=== PATIENT | female | born 1975 | race Caucasian/White ===

== ENCOUNTER 2016-10-18 17:50 | Emergency (ER) | payer BC, OTHER ==
[~2016-10-18] VITALS: Ht 165.1 cm; Wt 79.4 kg
[2016-10-18 18:04] VITALS: TEMP 36.7; Ht 165.1 cm; Wt 79.4 kg
[2016-10-18] MEDS ORDERED: RABIES VACCINE (IMOVAX) HUMAN DIPL CELL 2.5 INTER.UNIT/ML SYR IM. ONE (18:30)
[2016-10-18] MEDS ORDERED: RABIES IMMUNE GLOBULIN (HUMAN) 150 INTER.UNIT/ML 2 ML VIAL IM. ONE (18:30)
--- NOTE | 2016-10-18 18:35 | EMERGENCY ROOM VISIT NOTE ---
History Report prepared by Scribe: Yeni Cobb Under the Supervision of: Dr. Rhona Pedroza M.D. First contact with patient: 18:09 Chief Complaint: RABIES VACCINE Stated Complaint: RABIES History of Present Illness The patient is a 41 year old female who presents to the Emergency Room with complaints of Review of Systems See HPI for pertinent positives & negatives. A total of 10 systems reviewed and were otherwise negative. Social History Smoking Status: Never Smoker Physical Exam Vital Signs Date Time Temp Pulse Resp B/P (MAP) Pulse Ox O2 Delivery O2 Flow Rate FiO2 10/18/16 18:04 36.7 75 16 113/57 96 Room Air Medical Decision & Procedures Medical Decision []: Past medical records reviewed. The patient was evaluated in room D1A. A complete history and physical examination was performed. Medication Reconcilliation Current Medication List: was personally reviewed by me Scribe Attestation The scribe's documentation has been prepared under my direction and personally reviewed by me in its entirety. I confirm that the note above accurately reflects all work, treatment, procedures, and medical decision making performed by me. Departure Information Referrals Emmanuel Mancia M.D.([facility]) (PCP) Patient Instructions My [facility]
--- NOTE | 2016-10-18 18:42 | EMERGENCY ROOM VISIT NOTE ---
ED Visit Note First contact with patient: 18:09 CHIEF COMPLAINT: Need for rabies vaccine HISTORY OF PRESENT ILLNESS: This 41-year-old female patient presents to the emergency department with complaints of noticing a bat in her house 2 days ago. The patient states she was sleeping upstairs with her son, and when coming down approximately 30 minutes later, noticed the bat flying around the entire dancers house. The patient is uncertain how long the bat had been in the house. She states they did call to have it removed the next day, and it was killed and disposed of, and was not saved for testing. The patient is uncertain if there was a bite, but There is concern for rabies exposure. REVIEW OF SYSTEMS: A 6 system review of systems was completed with positives and pertinent negatives listed in the HPI. ALLERGIES: None MEDICATIONS: Cosopt, Xylatan PMH: None. SOCIAL HISTORY: The patient lives locally with family. She denies drug, alcohol , tobacco use. PHYSICAL EXAM: Vital Signs: Reviewed Nurse's notes, vital signs stable. GENERAL : This is a 41-year-old female, in no acute distress, well-developed, well- nourished. HEAD: Atraumatic, without temporal or scalp tenderness. EYES: PERRLA, EOMI, no discharge or injection. SKIN: No rashes, erythema, bruising, or bites noted. Capillary refill less than 2 seconds. NEUROLOGICAL: Alert and oriented to person place and time. Normal sensation to light and sharp touch. MUSCULOSKELETAL: Motor functions grossly intact of the upper and lower extremities. Full range of motion. There is no tenderness on examination. EMERGENCY DEPARTMENT COURSE: I examined the patient. The patient was given RIG 20 Units/kg, 1600 units. The patient was given Imovax 1ml IM. The patient was observed for 20 minutes with no reaction. The patient was discharged home in stable condition. DIFFERENTIAL DIAGNOSIS: Rabies, bite by bat, and others. DIAGNOSIS: Rabies prophylaxis for possible bat bite DISCHARGE INSTRUCTIONS: Today is day 0. Return to the ER on days 3, 7, 14, and 28 for subsequent vaccinations. Return sooner or follow up with your family doctor for signs of infection (increased redness, discharge, fever) or for complications with the vaccine series. Current/Historical Medications Scheduled Dorzolamide Hcl-Timolol Maleat (Cosopt Oph), 1 DROPS OPB BID Latanoprost (Xalatan 0.005% Oph Cha), 1 DROPS OPB HS Allergies Coded Allergies: No Known Allergies (Unverified , 10/18/16) Vital Signs Date Time Temp Pulse Resp B/P (MAP) Pulse Ox O2 Delivery O2 Flow Rate FiO2 10/18/16 19:33 70 17 119/76 97 Room Air 10/18/16 18:04 36.7 75 16 113/57 96 Room Air Medications Administered Medications (Trade) Dose Ordered Sig/Claudia Route Start Time Stop Time Status Last Admin Dose Admin Rabies Vaccine Human Diploid Cell (Imovax Rabies) 2.5 interunit ONCE ONCE IM. 10/18/16 18:30 10/18/16 18:31 DC 10/18/16 19:10 2.5 INTERUNIT Rabies Immune Globulin (Imogam Rabies Inj) 1,600 interunit ONCE ONCE IM. 10/18/16 18:30 10/18/16 18:31 DC 10/18/16 19:11 1,600 INTERUNIT Departure Information Impression Primary Impression: Encounter for prophylactic administration of rabies immune globulin Additional Impression: Need for prophylactic vaccination against rabies Dispostion Home / Self-Care Condition GOOD Referrals Emmanuel Mancia M.D.([facility]) (PCP) Patient Instructions My [facility], Rabies Immune Globulin human RIG solution for injection , Rabies Vaccine suspension for injection Additional Instructions Today is day 0. Return to the ER on days 3 (10/21/16) , 7 (10/25/16), and 14 () for subsequent vaccinations. Return sooner or follow up with your family doctor for signs of infection ( increased redness, discharge, fever) or for complications with the vaccine series. Problem Qualifiers
[2016-10-18 19:33] VITALS: BP 119/76; PULSE 70; O2SAT 97
[2016-11-01] MEDS ORDERED: DORZ1SOL6 OPB (18:26)
[2016-11-01] MEDS ORDERED: LATA0.5S OPB (18:27)
== END 2016-10-18 19:35 | disposition home or self-care (01) ==
LOC: C.EDB 17:50 → C.EDD 19:35
DX: Z20.3 Contact with and (suspected) exposure to rabies (principal); Z23 Encounter for immunization; Z79.899 Other long term (current) drug therapy

== ENCOUNTER 2016-10-21 21:58 | Emergency (ER) | payer BC ==
[~2016-10-21] VITALS: Ht 165.1 cm; Wt 81.4 kg
[2016-10-21 22:03] VITALS: BP 110/69; PULSE 83; TEMP 36.5; O2SAT 96; Ht 165.1 cm; Wt 81.4 kg
[2016-10-21] MEDS ORDERED: RABIES VACCINE (IMOVAX) HUMAN DIPL CELL 2.5 INTER.UNIT/ML SYR IM. ONE (22:15)
--- NOTE | 2016-10-21 22:18 | EMERGENCY ROOM VISIT NOTE ---
ED Visit Note First contact with patient: 22:04 CHIEF COMPLAINT: Rabies prophylaxis HISTORY OF PRESENT ILLNESS: This 41-year-old female patient presents to the emergency department ambulatory for their secondary rabies shot. The patient has not had any complications from the previous injections. They deny any other complaints. REVIEW OF SYSTEMS: A 6 system review of systems was completed with positives and pertinent negatives listed in the HPI. ALLERGIES: No known drug allergies MEDICATIONS: See med list PMH: Unchanged from previous visit. PHYSICAL EXAM: Vital Signs: Reviewed Nurse's notes, vital signs stable. GENERAL : This is a 41-year-old female, in no acute distress, well-developed, well- nourished. HEAD: Atraumatic, without temporal or scalp tenderness. EYES: PERRLA, EOMI, no discharge or injection. SKIN: Normal. NEUROLOGICAL: Alert and cooperative. Sensory and motor functions grossly intact. EMERGENCY DEPARTMENT COURSE: I examined the patient. The patient was given Imovax 2.5 units IM. The patient was observed for 20 minutes with no reaction. The patient was discharged home in stable condition. DIAGNOSIS: Rabies prophylaxis Current/Historical Medications Scheduled Dorzolamide Hcl-Timolol Maleat (Cosopt Oph), 1 DROPS OPB BID Latanoprost (Xalatan 0.005% Oph Cha), 1 DROPS OPB HS Allergies Coded Allergies: No Known Allergies (Unverified , 10/18/16) Vital Signs Date Time Temp Pulse Resp B/P (MAP) Pulse Ox O2 Delivery O2 Flow Rate FiO2 10/21/16 22:03 36.5 83 16 110/69 96 Room Air Departure Information Impression Primary Impression: Need for post exposure prophylaxis for rabies Dispostion Home / Self-Care Condition GOOD Referrals Emmanuel Mancia M.D.([facility]) (PCP) Patient Instructions My [facility] Additional Instructions Continue to follow the vaccination schedule given to you on your previous visit. Return here for any new/concerning symptoms.
[2016-11-01] MEDS ORDERED: DORZ1SOL6 OPB (18:26)
[2016-11-01] MEDS ORDERED: LATA0.5S OPB (18:27)
== END 2016-10-21 22:22 | disposition home or self-care (01) ==
LOC: C.EDB 21:59 → C.EDA 22:22
DX: Z20.3 Contact with and (suspected) exposure to rabies (principal); Z23 Encounter for immunization

== ENCOUNTER 2016-10-25 19:51 | Emergency (ER) | payer BC ==
[~2016-10-25] VITALS: Ht 165.1 cm; Wt 82.3 kg
[2016-10-25 20:02] VITALS: TEMP 36.7; Ht 165.1 cm; Wt 82.3 kg
[2016-10-25] MEDS ORDERED: RABIES VACCINE (IMOVAX) HUMAN DIPL CELL 2.5 INTER.UNIT/ML SYR IM. ONE (20:30)
--- NOTE | 2016-10-25 20:47 | EMERGENCY ROOM VISIT NOTE ---
ED Visit Note First contact with patient: 20:20 CHIEF COMPLAINT: Rabies prophylaxis HISTORY OF PRESENT ILLNESS: This 41-year-old female patient presents to the emergency department ambulatory for their 3rd rabies shot. The patient has not had any complications from the previous injections. They deny any other complaints. REVIEW OF SYSTEMS: A 6 system review of systems was completed with positives and pertinent negatives listed in the HPI. ALLERGIES: NKDA MEDICATIONS: See EMR PMH: Unchanged from previous visit. PHYSICAL EXAM: Vital Signs: Reviewed Nurse's notes, vital signs stable. GENERAL : This is a 41-year-old female, in no acute distress, well-developed, well- nourished. HEAD: Atraumatic, without temporal or scalp tenderness. EYES: PERRLA, EOMI, no discharge or injection. SKIN: Normal. NEUROLOGICAL: Alert and cooperative. Sensory and motor functions grossly intact. EMERGENCY DEPARTMENT COURSE: I examined the patient. The patient was given Imovax 2.5 units IM. The patient was observed for 20 minutes with no reaction. The patient was discharged home in stable condition. DIAGNOSIS: Rabies prophylaxis Current/Historical Medications Scheduled Dorzolamide Hcl-Timolol Maleat (Cosopt Oph), 1 DROP OPB BID Latanoprost (Xalatan 0.005% Oph Cha), 1 DROP OPB HS Allergies Coded Allergies: No Known Allergies (Unverified , 10/25/16) Vital Signs Date Time Temp Pulse Resp B/P (MAP) Pulse Ox O2 Delivery O2 Flow Rate FiO2 10/25/16 21:46 76 18 122/76 97 10/25/16 20:02 36.7 89 18 111/73 95 Room Air Medications Administered Medications (Trade) Dose Ordered Sig/Claudia Route Start Time Stop Time Status Last Admin Dose Admin Rabies Vaccine Human Diploid Cell (Imovax Rabies) 2.5 interunit ONCE ONCE IM. 10/25/16 20:30 10/25/16 20:31 DC 10/25/16 21:38 2.5 INTERUNIT Departure Information Impression Primary Impression: Rabies, need for prophylactic vaccination against Dispostion Home / Self-Care Condition GOOD Referrals Emmanuel Mancia M.D.([facility]) (PCP) Patient Instructions My [facility] Additional Instructions Continue to follow the previous discharge instructions.
[2016-10-25 21:46] VITALS: BP 122/76; PULSE 76; O2SAT 97
[2016-11-01] MEDS ORDERED: DORZ1SOL6 OPB (18:26)
[2016-11-01] MEDS ORDERED: LATA0.5S OPB (18:27)
== END 2016-10-25 21:47 | disposition home or self-care (01) ==
LOC: C.EDB 19:53 → C.EDD 21:47
DX: Z23 Encounter for immunization (principal); Z20.3 Contact with and (suspected) exposure to rabies

== ENCOUNTER 2016-11-01 20:15 | Emergency (ER) | payer BC ==
[~2016-11-01] VITALS: Ht 165.1 cm; Wt 82.9 kg
[2016-11-01 20:18] VITALS: Ht 165.1 cm; Wt 82.9 kg
[2016-11-01] MEDS ORDERED: RABIES VACCINE (IMOVAX) HUMAN DIPL CELL 2.5 INTER.UNIT/ML SYR IM. ONE (20:30)
--- NOTE | 2016-11-01 20:37 | EMERGENCY ROOM VISIT NOTE ---
ED Visit Note First contact with patient: 20:30 Chief Complaint: Rabies Return Visit History of Present Illness: This patient is a 41-year-old female who presents to the Emergency Department via private vehicle for their final Rabies Vaccination Injections. The patient reports that they had no reaction to previous injection. Patient denies the development of any fevers, chills, sweats, or URI symptoms. Medications: Unchanged from previous visit. Allergies: None PMH: Unchanged from previous visit. SHx: Patient was locally with family. ROS: All pertinent positive and negative review of systems are appropriately documented in the History of Present Illness. Physical Exam: VITAL SIGNS - Vital signs and Nursing Notes were reviewed. GENERAL -41, well-developed, well-nourished, and in no acute distress. SKIN - Without rashes or lesions. NEURO - Patient is A&O and communicates appropriately with the provider. ED Course: Previous ED visit note was reviewed by myself prior to patient evaluation. Patient reports no reaction to the previous injection(s). Patient received 2.5 IU of Imovax intramuscularly. Patient was observed in the Emergency Department for greater than 20 minutes prior to discharge without signs of reaction. Patient was educated on worrisome symptoms for return visit to the Emergency Department. Patient discharged to home with the intent for follow-up in the Emergency Department as scheduled for the remainder of their injections. She denies any immunocompromising condition. Impression: Rabies Prophylaxis Current/Historical Medications Scheduled Dorzolamide Hcl-Timolol Maleat (Cosopt Oph), 1 DROP OPB BID Latanoprost (Xalatan 0.005% Oph Cha), 1 DROP OPB HS Allergies Coded Allergies: No Known Allergies (Unverified , 10/25/16) Vital Signs Date Time Temp Pulse Resp B/P (MAP) Pulse Ox O2 Delivery O2 Flow Rate FiO2 11/01/16 20:54 36.8 86 16 118/73 97 11/01/16 20:18 36.8 86 16 118/73 97 Room Air Medications Administered Medications (Trade) Dose Ordered Sig/Claudia Route Start Time Stop Time Status Last Admin Dose Admin Rabies Vaccine Human Diploid Cell (Imovax Rabies) 2.5 interunit ONCE ONCE IM. 11/01/16 20:30 11/01/16 20:31 DC 11/01/16 20:45 2.5 INTERUNIT Departure Information Impression Primary Impression: Rabies, need for prophylactic vaccination against Dispostion Home / Self-Care Condition GOOD Referrals Emmanuel Mancia M.D. ([facility]) (PCP) Patient Instructions My [facility] Additional Instructions Discharge Instructions: You were seen in the Emergency Department today for your Rabies Prophylaxis Injection. Congratulations on finishing the series. For pain or fever control, you can use the following [id number] medicines (if >12 yo): - Regular strength (325mg/tab) Tylenol (acetaminophen) 2 tabs every 4-6 hours as needed. Do not exceed 12 tablets in a 24 hour period. Avoid taking more than 3 grams (3000 mg) of Tylenol per day. This includes any other sources of acetaminophen you may take on a regular basis. - Regular strength (200 mg/tab) Advil (ibuprofen) 1-2 tabs every 4-6 hours as needed. Do not exceed a dose of 3200 mg per day. Return to the emergency department if your symptoms worsen despite treatment course outlined above. Please return to emergency department with any new/concerning symptoms.
[2016-11-01 20:54] VITALS: BP 118/73; PULSE 86; TEMP 36.8; O2SAT 97
== END 2016-11-01 20:55 | disposition home or self-care (01) ==
LOC: C.EDB 20:16 → C.EDD 20:55
DX: Z20.3 Contact with and (suspected) exposure to rabies (principal); Z23 Encounter for immunization

== ENCOUNTER → 2016-11-01 | Outpatient (CLI) | payer BC ==
[~2016-11-01] MED LIST: DORZ1SOL6 OPB; LATA0.5S OPB
== END | disposition home or self-care (01) ==
LOC: C.PAPS 11:27
PROVIDERS: ATTEND Obstetrics & Gynecology
DX: Z01.419 Encounter for gynecological examination (general) (routine) without abnormal findings (principal); R87.612 Low grade squamous intraepithelial lesion on cytologic smear of cervix (LGSIL)

== ENCOUNTER → 2017-01-17 | Outpatient (CLI) | payer BC ==
--- NOTE | 2017-01-18 07:43 | MAMMOGRAPHY REPORT ---
BILATERAL FIRST EVER DIGITAL SCREENING MAMMOGRAM TOMOSYNTHESIS WITH CAD: 01/17/2017 CLINICAL HISTORY: Routine screening. Baseline exam. TECHNIQUE: Breast tomosynthesis in addition to standard 2D mammography was performed. Current study was also evaluated with a Computer Aided Detection (CAD) system. COMPARISON: No prior exams were available for comparison. BREAST COMPOSITION: There are scattered areas of fibroglandular density in both breasts. FINDINGS: No suspicious mass, architectural distortion or cluster of microcalcifications is seen. IMPRESSION: ACR BI-RADS CATEGORY 1: NEGATIVE There is no mammographic evidence of malignancy. A 1 year screening mammogram is recommended. The pa tient will receive written notification of the results. Approximately 10% of breast cancers are not detected with mammography. A negative mammographic report should not delay biopsy if a clinically suggestive mass is present. Jenny ramírez/penny:01/17/2017 16:37:38 Reception Interviewer: Wendy VALLADARES(Donna)(Farida)(BD), [facility] letter sent: Normal 1/2 BI-RADS Code: ACR BI-RADS Category 1: Negative
== END | disposition home or self-care (01) ==
LOC: C.MAMM 15:56
PROVIDERS: ATTEND Obstetrics & Gynecology
DX: Z12.31 Encounter for screening mammogram for malignant neoplasm of breast (principal)

== ENCOUNTER 2017-04-02 18:21 | Emergency (ER) | payer BC ==
[~2017-04-02] VITALS: Ht 165.1 cm; Wt 85.0 kg
[2017-04-02 18:40] VITALS: TEMP 37
[2017-04-02 19:46] VITALS: Ht 165.1 cm; Wt 85.0 kg
[2017-04-02 19:48] VITALS: O2SAT 96
[2017-04-02] MEDS ORDERED: PROG1CAP2 PO (20:04)
[2017-04-02] MEDS ORDERED: PROG1CAP2 PV (20:04)
[2017-04-02 20:12] LABS: BASO % 0.3 %; BASO ABS # 0.02 K/uL (0-0.2); EOS % 1.9 %; EOS ABS # 0.13 K/uL (0-0.5); HEMATOCRIT 35.9 % (37-47); HEMOGLOBIN 12.1 g/dL (12.0-16.0); IG# 0.03 K/uL (0.00-0.02); LYMPH % 22.2 %; LYMPH ABS # 1.48 K/uL (1.2-3.4); MEAN CORPUSCULAR HEMOGLOBIN 30.3 pg (25-34); MEAN CORPUSCULAR HGB CONC 33.7 g/dl (32-36); MEAN PLATELET VOLUME 10.9 fL (7.4-10.4); MONO % 10.8 %; MONO ABS # 0.72 K/uL (0.11-0.59); NEUT % 64.4 %; NEUT ABS # 4.29 K/uL (1.4-6.5); PLATELET COUNT 216 K/uL (130-400); RED CELL DISTRIBUTION WIDTH CV 14.4 % (11.5-14.5); RED CELL DISTRIBUTION WIDTH SD 47.5 fL (36.4-46.3); WHITE BLOOD COUNT 6.67 K/uL (4.8-10.8)
[2017-04-02 20:22] LABS: PTT PATIENT 27.7 SECONDS (21.0-31.0)
[2017-04-02 20:25] LABS: ALBUMIN 3.5 gm/dl (3.4-5.0); CALCIUM 9.2 mg/dl (8.5-10.1); CREATININE 0.7 mg/dl (0.60-1.20); POTASSIUM 3.3 mmol/L (3.5-5.1)
[2017-04-02 20:28] LABS: TOTAL PROTEIN 7.1 gm/dl (6.4-8.2)
--- NOTE | 2017-04-02 20:56 | DIAGNOSTIC IMAGING REPORT ---
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 FINDINGS: The uterus measures 7.9 x 5.5 x 6.0 cm. The uterus is retroflexed. There is a 2.9 cm thick-walled cyst within the left ovary. This favors a corpus luteum. Normal color flow within the bilateral ovaries. Trace pelvic free fluid. There is a single intrauterine gestational sac, yolk sac, and pole. The crown-rump length is 1.85 cm consistent with an 8 week and 2 day fetus. However, no heart motion was identified. Therefore, this is consistent with a failed . IMPRESSION: Above findings consistent with a failed intrauterine . No heart rate identified. Electronically signed by: Doc Posey M.D. 04/02/2017 8:55 PM Dictated Date/Time: 04/02/2017 8:50 PM
[2017-04-02 23:04] VITALS: BP 118/65; PULSE 107; O2SAT 98
--- NOTE | 2017-04-03 02:22 | EMERGENCY ROOM VISIT NOTE ---
History Report prepared by Abraham: Naty Woodson Under the Supervision of: Dr. Moo King M.D. First contact with patient: 19:22 Chief Complaint: ED VAG BLEEDING Stated Complaint: SPOTTING W/ History of Present Illness The patient is a 42 year old female who presents to the Emergency Room with complaints of constant vaginal bleeding beginning this morning. The patient states that she is 8 weeks and 5 days and she woke up this morning with spotting. She reports that this is her third and she has a history of two miscarriages at 5 weeks and 6 weeks of . She notes that she has had 2 ultrasounds with this that were normal. The patient states that she is taking vitamins and progesterone. Pt denies cramping , trauma, LOC, headache, fevers, chills, diaphoresis, visual changes, neck pain , chest pain, breathing difficulties, nausea, vomiting, abdominal pain, back pain, melena, hematochezia, urinary symptoms, numbness, weakness, lymphadenopathy, rash, or other complaints. Source of History: patient Onset: this morning Position: other (vaginal) Quality: other (bleeding/spotting) Timing: constant Review of Systems See HPI for pertinent positives and negatives. A total of ten systems were reviewed and were otherwise negative. Past Medical & Surgical Medical Problems: (1) Glaucoma (2) Miscarriage Family History No pertinent family history stated. Social History Smoking Status: Never Smoker Marital Status: Housing Status: lives with family Occupation Status: employed Current/Historical Medications Scheduled Dorzolamide Hcl-Timolol Maleat (Cosopt Oph), 1 DROP OPB BID Latanoprost (Xalatan 0.005% Oph Cha), 1 DROP OPB HS Progesterone Micronized (Progesterone), 200 MG PV HS Progesterone Micronized (Progesterone), 200 MG PO HS Allergies Coded Allergies: No Known Allergies (Unverified , 04/02/17) Physical Exam Vital Signs Date Time Temp Pulse Resp B/P (MAP) Pulse Ox O2 Delivery O2 Flow Rate FiO2 04/02/17 23:04 107 21 118/65 98 04/02/17 21:30 91 04/02/17 21:22 92 20 117/64 97 Room Air 04/02/17 19:48 96 Room Air 04/02/17 18:40 37.0 121 18 135/70 98 Room Air Physical Exam GENERAL: Awake, alert, well-appearing, in no distress HENT: Normocephalic, atraumatic. Oropharynx unremarkable. EYES: Normal conjunctiva. Sclera non-icteric. NECK: Supple. No nuchal rigidity. FROM. No JVD. RESPIRATORY: Clear to auscultation. CARDIAC: Regular rate, normal rhythm. Extremities warm and well perfused. Pulses equal. ABDOMEN: Soft, non-distended. No tenderness to palpation. No rebound or guarding. No masses. RECTAL: Deferred. MUSCULOSKELETAL: Chest examination reveals no tenderness. The back is symmetrical on inspection without obvious abnormality. There is no CVA tenderness to palpation. No joint edema. LOWER EXTREMITIES: Calves are equal size bilaterally and non-tender. No edema. No discoloration. NEURO: Normal sensorium. No sensory or motor deficits noted. SKIN: No rash or jaundice noted. Medical Decision & Procedures ER Provider Diagnostic Interpretation: Radiology results as stated below per my review and radiologist interpretation: LIMITED (US) FINDINGS: The uterus measures 7.9 x 5.5 x 6.0 cm. The uterus is retroflexed. There is a 2.9 cm thick-walled cyst within the left ovary. This favors a corpus luteum. Normal color flow within the bilateral ovaries. Trace pelvic free fluid. There is a single intrauterine gestational sac, yolk sac, and pole. The crown-rump length is 1.85 cm consistent with an 8 week and 2 day fetus. However, no heart motion was identified. Therefore, this is consistent with a failed . IMPRESSION: Above findings consistent with a failed intrauterine . No heart rate identified. Electronically signed by: Doc Posey M.D. 04/02/2017 8:55 PM Dictated Date/Time: 04/02/2017 8:50 PM Laboratory Results 04/02/17 19:55 Red Blood Count 3.99, Mean Corpuscular Volume 90.0, Mean Corpuscular Hemoglobin 30.3, Mean Corpuscular Hemoglobin Concent 33.7, Mean Platelet Volume 10.9, Neutrophils (%) (Auto) 64.4, Lymphocytes (%) (Auto) 22.2, Monocytes (%) (Auto) 10.8, Eosinophils (%) (Auto) 1.9, Basophils (%) (Auto) 0.3, Neutrophils # (Auto ) 4.29, Lymphocytes # (Auto) 1.48, Monocytes # (Auto) 0.72, Eosinophils # (Auto ) 0.13, Basophils # (Auto) 0.02 04/02/17 19:55 Test 04/02/17 19:55 White Blood Count 6.67 K/uL (4.8-10.8) Red Blood Count 3.99 M/uL (4.2-5.4) Hemoglobin 12.1 g/dL (12.0-16.0) Hematocrit 35.9 % (37-47) Mean Corpuscular Volume 90.0 fL (80-100) Mean Corpuscular Hemoglobin 30.3 pg (25-34) Mean Corpuscular Hemoglobin Concent 33.7 g/dl (32-36) Platelet Count 216 K/uL (130-400) Mean Platelet Volume 10.9 fL (7.4-10.4) Neutrophils (%) (Auto) 64.4 % Lymphocytes (%) (Auto) 22.2 % Monocytes (%) (Auto) 10.8 % Eosinophils (%) (Auto) 1.9 % Basophils (%) (Auto) 0.3 % Neutrophils # (Auto) 4.29 K/uL (1.4-6.5) Lymphocytes # (Auto) 1.48 K/uL (1.2-3.4) Monocytes # (Auto) 0.72 K/uL (0.11-0.59) Eosinophils # (Auto) 0.13 K/uL (0-0.5) Basophils # (Auto) 0.02 K/uL (0-0.2) RDW Standard Deviation 47.5 fL (36.4-46.3) RDW Coefficient of Variation 14.4 % (11.5-14.5) Immature Granulocyte % (Auto) 0.4 % Immature Granulocyte # (Auto) 0.03 K/uL (0.00-0.02) Prothrombin Time 10.5 SECONDS (9.0-12.0) Prothromb Time International Ratio 1.0 (0.9-1.1) Activated Partial Thromboplast Time 27.7 SECONDS (21.0-31.0) Partial Thromboplastin Ratio 1.1 Urine Color YELLOW Urine Appearance CLOUDY (CLEAR) Urine pH 6.0 (4.5-7.5) Urine Specific [place] 1.018 (1.000-1.030) Urine Protein NEG (NEG) Urine Glucose (UA) NEG (NEG) Urine Ketones NEG (NEG) Urine Occult Blood 2+ (NEG) Urine Nitrite NEG (NEG) Urine Bilirubin NEG (NEG) Urine Urobilinogen NEG (NEG) Urine Leukocyte Esterase NEG (NEG) Urine WBC (Auto) 5-10 /hpf (0-5) Urine RBC (Auto) 5-10 /hpf (0-4) Urine Hyaline Casts (Auto) 1-5 /lpf (0-5) Urine Epithelial Cells (Auto) >30 /lpf (0-5) Urine Bacteria (Auto) 2+ (NEG) Urine Yeast (Auto) (NONE PRSENT) Anion Gap 11.0 mmol/L (3-11) Est Creatinine Clear Calc Drug Dose 113.9 ml/min Estimated GFR () 124.7 Estimated GFR (Non- 107.6 BUN/Creatinine Ratio 14.6 (10-20) Calcium Level 9.2 mg/dl (8.5-10.1) Total Bilirubin 0.4 mg/dl (0.2-1) Aspartate Amino Transf (AST/SGOT) 15 U/L (15-37) Alanine Aminotransferase (ALT/SGPT) 21 U/L (12-78) Alkaline Phosphatase 81 U/L (45-117) Total Protein 7.1 gm/dl (6.4-8.2) Albumin 3.5 gm/dl (3.4-5.0) Globulin 3.6 gm/dl (2.5-4.0) Albumin/Globulin Ratio 1.0 (0.9-2) Human Chorionic Gonadotropin, Quant 19935 mIU/mL Laboratory results reviewed by il ED Course 1921: The patient was evaluated in room A2. A complete history and physical exam was performed. 2121: I reevaluated and updated the patient. 2205: I spoke to TRAINING PERSONNEL SUPERVISOR at [facility]. 2246: I reevaluated the patient. Discussed results and discharge instructions: She verbalized understanding and agreement. The patient is ready for discharge. Medical Decision Triage Nursing notes reviewed and agree them. The patient's history was concerning for vaginal bleeding and early . Differential diagnosis: Etiologies such as threatened , miscarriage, ectopic , dysfunction uterine bleeding, bleeding dyscrasia, trauma, infection, as well as others were entertained. Physical examination: As above. Benign abdomen. ER treatment provided: No medication given On reassessment the patient was stable. Diagnostic interpretation by me: The labs revealed the patient to the Rh positive. CBC, coagulation studies, and chemistries were unremarkable. Quantitative hCG was over 20,000. Imaging studies: Ultrasound as above The patient's ultrasound dates are consistent with what she reports for her timing however the ultrasound did not see any cardiac activity. This is very concerning and I discussed this with the patient. She will need close follow-up with TRAINING PERSONNEL SUPERVISOR. Consultation: A consultation was placed with the ground intelligence officer physician, Dr. Alex the case was discussed and diagnostics were reviewed. He recommended conservative management with close follow-up in the office tomorrow. Bleeding instructions given to the patient. By the evaluation outlined above other emergent etiologies such as those listed in the differential, as well as others, were deemed relatively unlikely. The patient was educated about the findings as listed above. All questions were answered and the patient was pleased with the treatment. Return instructions were outlined and the patient was discharged in stable condition. The patient was referred to TRAINING PERSONNEL SUPERVISOR tomorrow for follow-up for a recheck of the current condition. Medication Reconcilliation Current Medication List: was personally reviewed by me Blood Pressure Screening Patient's blood pressure: Elevated blood pressure Blood pressure disposition: Elevated BP felt to be situational Consults Time Called: 2199 Consulting Physician: Dr. Ruiz - TRAINING PERSONNEL SUPERVISOR at [facility] Returned Call: 2205 I spoke to TRAINING PERSONNEL SUPERVISOR at [facility]. Impression Primary Impression: First trimester bleeding Scribe Attestation The scribe's documentation has been prepared under my direction and personally reviewed by me in its entirety. I confirm that the note above accurately reflects all work, treatment, procedures, and medical decision making performed by me. Departure Information Dispostion Home / Self-Care Referrals Emmanuel Mancia M.D.([facility]) (PCP) Patient Instructions My [facility] Additional Instructions Return to the emergency department for passing out, abdominal pain, bleeding more than 3 pads an hour for 3 consecutive hours, or as needed. No tampon use, intercourse, physical exertion, or strenuous activity. Rest and drink plenty of fluids. Call [facility] TRAINING PERSONNEL SUPERVISOR at [facility] tomorrow. The number is listed below under Dr. Alex. Let the executive secretary social welfare know that he was aware of your ER visit and current situation and wants you seen tomorrow. Call the office between 8 and 8: 30 AM.
[2017-04-04] MEDS ORDERED: BRIM0.1S OP (14:37)
[2017-04-04] MEDS ORDERED: MULT-506 PO (14:38)
[2017-04-04] MEDS ORDERED: VITAMIN C PO (14:38)
[2017-04-05] MEDS ORDERED: MTR600X PO (11:42)
== END 2017-04-02 23:06 | disposition home or self-care (01) ==
LOC: C.EDB 18:22 → C.EDA 23:06
DX: O26.851 Spotting complicating pregnancy, first trimester (principal); Z3A.08 8 weeks gestation of pregnancy; H40.9 Unspecified glaucoma; O26.891 Other specified pregnancy related conditions, first trimester; O99.89 Other specified diseases and conditions complicating pregnancy, childbirth and the puerperium; Z87.59 Personal history of other complications of pregnancy, childbirth and the puerperium

== ENCOUNTER 2017-04-05 09:55 | Day surgery (SDC) | payer BC ==
[~2017-04-05] VITALS: Ht 165.1 cm; Wt 83.3 kg
[~2017-04-05 09:55] MED LIST changes: +BRIM0.1S OP; +FENTANYL CITRATE INJ 50 MCG/1 ML 2 ML VIAL ONE; +LACTATED RINGER'S 1000ML 1,000 ML IV SCH; +LIDOCAINE HCL 2% 2 ML VIAL (20MG/ML) ONE; +MIDAZOLAM HCL 1 MG/ML 2ML VIAL ONE; +MULT-506 PO; +PROPOFOL IV EMULSION 10 MG/ML 20 ML VIAL IV ONE; +VITAMIN C PO
[2017-04-05 10:17] VITALS: BP 134/74; PULSE 94; TEMP 37.4; O2SAT 98; Ht 165.1 cm; Wt 83.3 kg
[2017-04-05] MEDS ORDERED: [UNRECOGNIZED DRUG - OTHER] PO (10:34)
[2017-04-05] MEDS ORDERED: MISO200T PO (10:34)
--- NOTE | 2017-04-05 10:56 | History & Physical Bridge Note ---
H&P Re-Evaluation Bridge Note: I have examined the patient, reviewed the History & Physical and in the interval since the performance of the History & Physical I have noted the following changes of clinical significance: No changes noted
[2017-04-05] MEDS ORDERED: ONDANSETRON INJ 2 MG/ML 2 ML VIAL IV PRN ×2 (11:15→11:45)
[2017-04-05] MEDS ORDERED: ATROPINE SULFATE 0.1 MG/ML 5ML SYR IV PRN (11:15)
[2017-04-05] MEDS ORDERED: PROMETHAZINE HCL INJ 6.25 MG in SODIUM CHLORIDE 0.9% 50ML 50 ML IV PRN (11:15)
[2017-04-05] MEDS ORDERED: FENTANYL CITRATE INJ 50 MCG/1 ML 2 ML VIAL IV PRN (11:15)
[2017-04-05] MEDS ORDERED: EpHEDrine SULFATE INJ 50 MG/ML AMP IV PRN (11:15)
--- NOTE | 2017-04-05 11:37 | [facility] Post Operative Brief Note ---
Immediate Operative Summary Operative Date Apr 05, 2017. Pre-Operative Diagnosis Missed Post-Operative Diagnosis Missed Procedure(s) Performed Dilation and Evacuation Surgeon Dr. Alex Barrel Tester And Drainer Surgeon(s) none Estimated Blood Loss 5 ml. Findings Consistent with Post-Op Diagnosis Fluids (cc crystalloids) LR 600 ml. Specimens A. Products of Conception Chromosomal Testing Kit sent to [facility] Dra[facility] None Anesthesia Type General Complication(s) none Disposition Accompanied Pt To Recover: yes Disposition: Recovery Room / PACU
[2017-04-05] MEDS ORDERED: MTR600X PO (11:42)
[2017-04-05] MEDS ORDERED: ONDANSETRON INJ 2 MG/ML 2 ML VIAL ONE (11:43)
[2017-04-05] MEDS ORDERED: SODIUM CHLORIDE 0.9% 1000ML 1,000 ML IV SCH (11:43)
[2017-04-05] MEDS ORDERED: DEXAMETHASONE SOD INJ 4 MG/ML VIAL ONE (11:43)
--- NOTE | 2017-04-05 11:43 | Discharge Instructions ---
Discharge Instructions Date of Service Apr 05, 2017. Admission Reason for Admission: Missed Discharge Discharge Diagnosis / Problem: missed Discharge Goals Goal(s): Routine recovery after surgery Activity Recommendations Activity Limitations: as noted below Lifting Limitations: no more than 10 pounds Exercise/Sports Limitations: as tolerated May Resume Sexual Activity: after follow-up appointment Shower/Bathe: no limitations Driving or Machine Use: resume 1 day after discharge . Instructions / Follow-Up Instructions / Follow-Up ACTIVITY RECOMMENDATIONS: * Avoid tampons, douching, hot tubs, pools, and intercourse until bleeding has stopped. * May shower as usual. * No strenuous activity for 24-48 hours. After 24-48 hours, you may do anything you feel like doing (driving and sports are okay). SPECIAL CARE INSTRUCTIONS: Special Diet: * Mild nausea may occur in the immediate post-operative period. * Take clear liquids such as tea, cola or bouillon until all nausea has subsided; you may then resume your normal diet. Special Care: * Light bleeding and vaginal spotting can last from a few days to 3-4 weeks. Call your doctor if bleeding becomes heavier than the heaviest part of your period. * Check your temperature twice a day for one week. If it goes above 100.4 degrees Fahrenheit (38.0 Celsius), notify your doctor. * Call your doctor's office for an appointment for 6 weeks after your surgery. FOLLOW-UP VISIT: Call your doctor's office for an appointment for 6 weeks after your surgery. Current Hospital Diet Patient's current hospital diet: Discharge Diet Recommended Diet: Regular Diet Fluid Restriction: None Procedures Procedures Performed: Dilation and Evacuation Pending Studies Studies pending at discharge: no Medical Emergencies . Who to Call and When: Medical Emergencies: If at any time you feel your situation is an emergency, please call 911 immediately. . Non-Emergent Contact Non-Emergency issues call your: Primary Care Provider . . "Provider Documentation" section prepared by Martin Alex. . VTE Core Measure Inpt VTE Proph given/why not?: Treatment not indicated
[2017-04-05] MEDS ORDERED: MoRPHine SULFATE 4 MG/ML 1 ML CARP\\VIAL IV PRN (11:45)
[2017-04-05] MEDS ORDERED: KETOROLAC TROMETHAMINE 30 MG/ML VIAL IV. PRN (11:45)
[2017-04-05] MEDS ORDERED: IBUPROFEN 600 MG TAB PO PRN (11:45)
[2017-04-05] MEDS ORDERED: MoRPHine SULFATE 2 MG/ML CARP IV PRN (11:45)
[2017-04-05] MEDS ORDERED: OXYCODONE/ACETAMINOPHEN 5-325 TAB PO PRN (11:45)
--- NOTE | 2017-04-05 12:10 | Anesthesiology Progress Note ---
Anesthesia Post Op Note Date & Time Apr 05, 2017 at 12:10 Vital Signs Pain Intensity: 0 Vital Signs Past 12 Hours Date Time Temp Pulse Resp B/P (MAP) Pulse Ox O2 Delivery O2 Flow Rate FiO2 04/05/17 12:02 82 20 97 04/05/17 12:02 82 20 04/05/17 12:01 106/72 04/05/17 11:57 78 15 97 04/05/17 11:57 78 15 04/05/17 11:56 108/66 04/05/17 11:52 80 17 100 04/05/17 11:52 80 17 04/05/17 11:51 107/66 04/05/17 11:50 79 17 100 04/05/17 11:50 79 17 04/05/17 11:46 107/72 04/05/17 11:45 84 16 04/05/17 11:45 84 16 100 04/05/17 11:40 36.0 85 17 119/67 100 Oxymask 10 04/05/17 11:40 90 20 119/67 100 04/05/17 11:40 91 20 04/05/17 10:17 37.4 94 18 134/74 (94) 98 Room Air Notes Mental Status: alert / awake / arousable, participated in evaluation Pt Amnestic to Procedure: Yes Nausea / Vomiting: adequately controlled Pain: adequately controlled Airway Patency, RR, SpO2: stable & adequate BP & HR: stable & adequate Hydration State: stable & adequate Anesthetic Complications: no major complications apparent
[2017-04-05 12:25] VITALS: BP 116/67; PULSE 89; TEMP 37.3; O2SAT 98
--- NOTE | 2017-04-05 12:31 | HISTORY & PHYSICAL EXAMINATION ---
DATE OF ADMISSION: 04/05/2017 PREOPERATIVE DIAGNOSIS: Missed . POSTOPERATIVE DIAGNOSIS: Same. PROCEDURE: D&E. SURGEON: Dr. Martin Alex. TEACHERS ASSISTANT: None. COMPLICATIONS: None. ESTIMATED BLOOD LOSS: 5 mL FINDINGS: Products of conception and blood type A positive. CLINICAL HISTORY: The patient is a 42-year-old female para 0-0-2-0 at approximately 8 weeks 2 days who had an ultrasound yesterday confirming a demise at 8 weeks and 2 days. The patient is A positive. She was scheduled for a D&E. She will be having genetic testing done since she has recurrent habitual history. DESCRIPTION OF PROCEDURE: After satisfactory general anesthesia, the patient was prepped and draped in usual sterile fashion. Time-out was called prior to the start of the procedure. No antibiotics were given. A catheter was then used to empty the bladder 400 mL of clear urine. Exam under anesthesia revealed the uterus to be approximately 8 weeks' size. Weighted speculum was then placed in the posterior vault of the vagina. A tenaculum was then placed on the anterior lip of the cervix. The cervix was sounded to 8 cm. The cervix was then dilated and then a #8 curved curette was then introduced curetting and suctioning out products of conception and a sharp curette was then introduced curetting out minimal amounts of tissue. Pitocin was then started in the IV after the procedure was terminated. All remaining instruments were then removed. The EBL was 5 mL. The specimen was submitted to pathology and half of the specimen was submitted for genetic testing. The final sponge, needle and instrument count were correct. The patient was then placed supine on a stretcher. She was taken to the recovery room in stable condition.
[2017-04-05 12:55] VITALS: BP 126/60; PULSE 82; O2SAT 98
[2017-04-05 13:20] VITALS: BP 111/61; PULSE 89; TEMP 37.2; O2SAT 98
== END 2017-04-05 13:40 | disposition home or self-care (01) ==
LOC: C.ACU 09:55
PROVIDERS: ATTEND Obstetrics & Gynecology
DX: O02.1 Missed abortion (principal); H40.9 Unspecified glaucoma; Z79.82 Long term (current) use of aspirin; Z90.89 Acquired absence of other organs; Z98.890 Other specified postprocedural states

== ENCOUNTER 2017-10-21 23:07 | Emergency (ER) | payer BC ==
[~2017-10-21] VITALS: Ht 162.6 cm; Wt 84.0 kg
[~2017-10-21 23:07] MED LIST changes: -FENTANYL CITRATE INJ 50 MCG/1 ML 2 ML VIAL ONE; -LACTATED RINGER'S 1000ML 1,000 ML IV SCH; -LIDOCAINE HCL 2% 2 ML VIAL (20MG/ML) ONE; -MIDAZOLAM HCL 1 MG/ML 2ML VIAL ONE; +MISO200T PO; +MTR600X PO; -PROPOFOL IV EMULSION 10 MG/ML 20 ML VIAL IV ONE; +[UNRECOGNIZED DRUG - OTHER] PO
[2017-10-21 23:09] VITALS: TEMP 36.8; Ht 162.6 cm; Wt 84.0 kg
[2017-10-21] MEDS ORDERED: LIDOCAINE HCL 2% VISC SOLN 20 ML UDC PO STA (23:23)
[2017-10-21] MEDS ORDERED: ALUMINUM/MAGNESIUM SUSP 30 ML UDC PO STA (23:23)
[2017-10-21 23:39] VITALS: O2SAT 99
[2017-10-22 00:14] LABS: BASO % 0.2 %; BASO ABS # 0.02 K/uL (0-0.2); EOS % 2.1 %; EOS ABS # 0.18 K/uL (0-0.5); HEMATOCRIT 37.9 % (37-47); HEMOGLOBIN 12.8 g/dL (12.0-16.0); IG# 0.03 K/uL (0.00-0.02); LYMPH % 22.2 %; LYMPH ABS # 1.92 K/uL (1.2-3.4); MEAN CELL VOLUME 88.1 fL (80-100); MEAN CORPUSCULAR HEMOGLOBIN 29.8 pg (25-34); MEAN CORPUSCULAR HGB CONC 33.8 g/dl (32-36); MEAN PLATELET VOLUME 11.8 fL (7.4-10.4); MONO ABS # 0.78 K/uL (0.11-0.59); NEUT % 66.2 %; NEUT ABS # 5.73 K/uL (1.4-6.5); PLATELET COUNT 178 K/uL (130-400); RED CELL DISTRIBUTION WIDTH CV 14.5 % (11.5-14.5); RED CELL DISTRIBUTION WIDTH SD 46.7 fL (36.4-46.3); WHITE BLOOD COUNT 8.66 K/uL (4.8-10.8)
[2017-10-22 00:50] LABS: ALBUMIN 4.1 gm/dl (3.4-5.0); ALKALINE PHOSPHATASE 92 U/L (45-117); ALT/SGPT 24 U/L (12-78); AST/SGOT 24 U/L (15-37); BLOOD UREA NITROGEN 11 mg/dl (7-18); CARBON DIOXIDE 25 mmol/L (21-32); CREATININE 0.99 mg/dl (0.60-1.20); GLUCOSE 99 mg/dl (70-99); LIPASE 137 U/L (73-393); POTASSIUM 3.6 mmol/L (3.5-5.1); SODIUM 140 mmol/L (136-145); TOTAL PROTEIN 7.8 gm/dl (6.4-8.2)
[2017-10-22] MEDS ORDERED: ASPI81TA28 PO (01:04)
[2017-10-22] MEDS ORDERED: KETOROLAC TROMETHAMINE 30 MG/ML VIAL IV STA (01:52)
[2017-10-22 03:19] VITALS: BP 96/54; PULSE 81; O2SAT 95
--- NOTE | 2017-10-22 03:35 | EMERGENCY ROOM VISIT NOTE ---
History First contact with patient: 23:13 Chief Complaint: CHEST PAIN Stated Complaint: CHEST PAIN Nursing Triage Summary: Mid sternal chest pain started @ 1830 History of Present Illness The patient is a 42 year old female who presents to the Emergency Room with complaints of midsternal chest pain since 630 tonight. Nothing makes it better or worse. Pain 6 out of 10. Described as aching. Patient states she has been feeling slightly fatigued recently. 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 She only ate a piece of pizza. Normally she eats more. Patient denies exertional chest pain, dyspnea, abdominal pain, leg pain or swelling, fever, chills, cough, flulike illness. No injury to the area. Patient denies history of blood pressure, cholesterol, diabetes, inflammatory or autoimmune disorders. She does not smoke. Her dad had heart disease in his 60s. Review of Systems An 10 system review of systems was completed with positives and pertinent negatives listed in the HPI. Past Medical/Surgical History Medical Problems: (1) Glaucoma (2) Miscarriage Social History Smoking Status: Never Smoker Marital Status: Housing Status: lives with family Occupation Status: employed Current/Historical Medications Scheduled Aspirin (Aspirin Ec), 811 MG PO WK Brimonidine Tartrate (Alphagan P Oph), 1 DROP OP BID Dorzolamide Hcl-Timolol Maleat (Cosopt Oph), 1 DROP OPB BID Latanoprost (Xalatan 0.005% Oph Cha), 1 DROP OPB HS Physical Exam Vital Signs Date Time Temp Pulse Resp B/P (MAP) Pulse Ox O2 Delivery O2 Flow Rate FiO2 10/22/17 03:19 81 21 96/54 95 10/22/17 02:05 96 18 105/84 96 Room Air 10/22/17 00:13 98 20 114/76 99 Room Air 10/22/17 00:11 99 Room Air 10/21/17 23:44 100 10/21/17 23:39 99 Room Air 10/21/17 23:39 99 Room Air 10/21/17 23:09 36.8 92 18 123/79 97 Room Air Physical Exam VITALS: Vitals are noted on the nurse's note and reviewed by myself. Vital signs reviewed. GENERAL: Pleasant female, in no acute distress, nondiaphoretic, well-developed well-nourished. SKIN: The skin was without rashes, erythema, edema, or bruising. There is no tenting of the skin. Capillary reflex less than 2 seconds. HEAD: Normocephalic atraumatic. EARS: External auditory canals clear, tympanic membranes pearly castro without erythema or effusion bilaterally. EYES: Pupils equal round and reactive to light and accommodation. Conjunctivae without injection, sclerae without icterus. Extraocular movements intact. NOSE: Patent, turbinates without inflammation or discharge. MOUTH: Mucous membranes moist. Pharynx without erythema or exudate. Uvula midline. Airway patent. Tongue does not deviate. NECK: Supple without nuchal rigidity. No lymphadenopathy. No thyromegaly. Cervical spine is nontender. No JVD. HEART: Regular rate and rhythm without murmurs gallops or rubs. Chest nontender to palpation LUNGS: Clear to auscultation bilaterally without wheezes, rales or rhonchi. No retractions or accessory muscle use. ABDOMEN: Positive bowel sounds x 4. Normal tympanic percussion. Soft, nontender, without masses or organomegaly. Walker sign negative. No guarding or rebound tenderness. No CVA tenderness MUSCULOSKELETAL: No muscle atrophy, erythema, or edema noted. NEURO: Patient was alert and oriented to person place and time. Normal sensation to light and sharp touch. No focal neurological deficits. Medical Decision & Procedures Laboratory Results 10/22/17 00:00 Red Blood Count 4.30, Mean Corpuscular Volume 88.1, Mean Corpuscular Hemoglobin 29.8, Mean Corpuscular Hemoglobin Concent 33.8, Mean Platelet Volume 11.8, Neutrophils (%) (Auto) 66.2, Lymphocytes (%) (Auto) 22.2, Monocytes (%) (Auto) 9.0, Eosinophils (%) (Auto) 2.1, Basophils (%) (Auto) 0.2, Neutrophils # (Auto) 5.73, Lymphocytes # (Auto) 1.92, Monocytes # (Auto) 0.78, Eosinophils # (Auto) 0.18, Basophils # (Auto) 0.02 10/22/17 00:00 Test 10/22/17 00:00 10/22/17 00:10 10/22/17 02:16 White Blood Count 8.66 K/uL (4.8-10.8) Red Blood Count 4.30 M/uL (4.2-5.4) Hemoglobin 12.8 g/dL (12.0-16.0) Hematocrit 37.9 % (37-47) Mean Corpuscular Volume 88.1 fL (80-100) Mean Corpuscular Hemoglobin 29.8 pg (25-34) Mean Corpuscular Hemoglobin Concent 33.8 g/dl (32-36) Platelet Count 178 K/uL (130-400) Mean Platelet Volume 11.8 fL (7.4-10.4) Neutrophils (%) (Auto) 66.2 % Lymphocytes (%) (Auto) 22.2 % Monocytes (%) (Auto) 9.0 % Eosinophils (%) (Auto) 2.1 % Basophils (%) (Auto) 0.2 % Neutrophils # (Auto) 5.73 K/uL (1.4-6.5) Lymphocytes # (Auto) 1.92 K/uL (1.2-3.4) Monocytes # (Auto) 0.78 K/uL (0.11-0.59) Eosinophils # (Auto) 0.18 K/uL (0-0.5) Basophils # (Auto) 0.02 K/uL (0-0.2) RDW Standard Deviation 46.7 fL (36.4-46.3) RDW Coefficient of Variation 14.5 % (11.5-14.5) Immature Granulocyte % (Auto) 0.3 % Immature Granulocyte # (Auto) 0.03 K/uL (0.00-0.02) Anion Gap 8.0 mmol/L (3-11) Est Creatinine Clear Calc Drug Dose 78.4 ml/min Estimated GFR () 82.0 Estimated GFR (Non- 70.8 BUN/Creatinine Ratio 11.5 (10-20) Calcium Level 9.0 mg/dl (8.5-10.1) Total Bilirubin 0.5 mg/dl (0.2-1) Direct Bilirubin 0.1 mg/dl (0-0.2) Aspartate Amino Transf (AST/SGOT) 24 U/L (15-37) Alanine Aminotransferase (ALT/SGPT) 24 U/L (12-78) Alkaline Phosphatase 92 U/L (45-117) Troponin I < 0.015 ng/ml (0-0.045) Total Protein 7.8 gm/dl (6.4-8.2) Albumin 4.1 gm/dl (3.4-5.0) Lipase 137 U/L (73-393) Human Chorionic Gonadotropin, Qual NEG (NEG) Chemistry Specimen Hemolysis Bedside D-Dimer 337 ng/mlFEU (0-450) Bedside Troponin I < 0.030 ng/ml (0-0.045) Medications Administered Medications (Trade) Dose Ordered Sig/Claudia Route Start Time Stop Time Status Last Admin Dose Admin Lidocaine HCl (Viscous Lidocaine 2% Soln) 10 ml NOW STAT PO 10/21/17 23:23 10/21/17 23:25 DC 10/21/17 23:46 10 ML Al Hydroxide/Mg Hydroxide (Maalox Susp) 30 ml NOW STAT PO 10/21/17 23:23 10/21/17 23:25 DC 10/21/17 23:45 30 ML Ketorolac Tromethamine (Toradol Inj) 10 mg NOW STAT IV 10/22/17 01:52 10/22/17 01:54 DC 10/22/17 02:03 10 MG ED Course Prior records/ancillary studies reviewed. Triage Nursing notes reviewed. The patient's history was concerning for chest pain. Differential diagnosis: Etiologies such as cardiac ischemia, aortic dissection, pulmonary embolism, pneumonia, pneumothorax, musculoskeletal, infections, pericarditis, myocarditis , esophageal rupture, gastrointestinal, as well as others were entertained. Physical examination: As above. ER treatment provided: GI cocktail, Toradol On reassessment the patient felt better. Diagnostic interpretation by me: The electrocardiogram was negative for pathologic change. Normal sinus, normal intervals, no acute ST-T wave changes. Occasional PVC. Impression normal sinus rhythm with occasional PVC interpreted by myself. I think arrhythmia is unlikely. EKG shows normal sinus rhythm with no interval abnormalities such as QT prolongation or WPW. There are no findings to suggest Brugada syndrome. Cardiac monitoring in the emergency department reveals no tachycardic or bradycardic dysrhythmia. Hypertrophic cardiomyopathy was considered but there are no clear historical elements pointing toward this. EKG is not suggestive. The QRS voltage is not extremely large and there are no suggestive Q waves. The labs revealed 2 troponins that were negative greater than 2 hours apart. Negative d-dimer. Stable H&H. Imaging studies: Chest x-ray with no acute consolidation, pneumothorax free of my interpretation HEART SCORE: Hx: high/mod/low suspicion: 0 ECG: ST depression/nonspecific changes/normal: 0 Age: Greater than 65/45-64/less than 45: 0 Risk factors: (Hypertension, hyperlipidemia, diabetes, coronary disease, tobacco use, cocaine use): 0 Troponin: Greater than 2 times normal limits/1-2 times normal limits/normal: 0 Total: 0 Wells Score Symptoms of DVT 3pt: 0 Alternative diagnoses better explains illness 3pts: 0 Tachycardia greater than 100 1.5 pts 1.5 Immobilization greater than 3 days or surgery in the previous 4 weeks 1.5 pts: 0 Prior history of DVT or PE 1.5 pts: 0 Presence of hemoptysis 1pt: 0 Presence of malignancy 1pt: 0 (Score greater than 6 is high probability, score 2-6 moderate probability, score less than 2 low probability) Total: 1.5 The pulmonary embolism rule out criteria (PERC rule) Age <50 years 0 Heart rate <100 bpm yes Oxyhemoglobin saturation =95% 0 No hemoptysis 0 No estrogen use 0 No prior DVT or PE 0 No unilateral leg swelling 0 No surgery/trauma requiring hospitalization within the prior four weeks 0 (0 low risk) Total: 1 yes; negative d-dimer Exam and history seem consistent with chest pain most likely muscle skeletal in nature. Patient felt much better after the Toradol. Heart score was low. D- dimer is negative. EKG was normal sinus. She had 2 negative troponins. Patient was advised to rest, stay well-hydrated and to follow-up family care in a few days here in the ER sooner for chest pain, difficulty breathing, worsening signs or symptoms or as needed.By the evaluation outlined above emergent etiologies such as cardiac ischemia, aortic dissection, pulmonary embolism, pneumonia, pneumothorax, infections, pericarditis, myocarditis, gastrointestinal, as well as others were deemed relatively unlikely. The pt informed about the findings as listed above. All questions were answered and pleased with the treatment. Return instructions were outlined and the patient was discharged in stable condition. Referral: The patient was referred back to primary care physician for follow-up in 2 to 3 days for a recheck of the current condition. Case reviewed with my attending The chart was completed utilizing [employer] voice recognition software. Grammatical errors, random word insertions, pronoun errors, and incomplete sentences are an occassional consequence of this system due to software limitations, ambient noise, and hardware issues. Any formal questions or concerns about the content, text, or information contained within the body of this dictation should be directly addressed to the physician him assistant for clarification. Medical Decision As above Medication Reconcilliation Current Medication List: was personally reviewed by me Blood Pressure Screening Patient's blood pressure: Normal blood pressure Impression Primary Impression: Chest pain Departure Information Dispostion Home / Self-Care Condition GOOD Forms Call Back Authorization, HOME CARE DOCUMENTATION FORM, IMPORTANT VISIT INFORMATION Patient Instructions Chest Pain - [facility], [facility] Additional Instructions Ibuprofen(Motrin, Advil) may be used for fever or pain. Use 600mg every six hours as needed. Take with food. Avoid using more than 2400mg in a 24 hour period. Do not use 2400mg per day for more than three consecutive days without physician direction. Prolonged inappropriate use can lead to stomach upset or ulcers. (AND/OR) Acetaminophen(Tylenol) may be used for fever or pain. Use 1000mg every six hours as needed. Avoid using more than 3000mg in a 24 hour period. Rest and drink plenty of fluids as tolerated. Continue current medications. Avoid strenuous activities and anything that worsens your pain. Resume normal activities once your symptoms resolve. Return to the ER immediately for worsening or persistent chest pain, abdominal pain, vomiting, fevers, chest pains, difficulty breathing, worsening of your condition, or as needed. Follow up with your primary physician in 2-3 days for a recheck of your current condition. Problem Qualifiers Primary Impression: Chest pain Chest pain type: unspecified Qualified Codes: R07.9 - Chest pain, unspecified
--- NOTE | 2017-10-22 07:57 | DIAGNOSTIC IMAGING REPORT ---
CHEST ONE VIEW PORTABLE CLINICAL HISTORY: Chest pain. COMPARISON STUDY: No previous studies for comparison. FINDINGS: Lung volumes are normal. Lungs are clear. No pneumothorax or pleural effusion is noted. Cardiac size is normal. Mediastinal contours are normal. There is no evidence for pulmonary edema. IMPRESSION: No acute cardiopulmonary findings. Electronically signed by: Palomo Mims M.D. 10/22/2017 7:56 AM Dictated Date/Time: 10/22/2017 7:55 AM
== END 2017-10-22 03:21 | disposition home or self-care (01) ==
LOC: C.EDB 23:08 → C.EDA 10-22 03:21
DX: R07.9 Chest pain, unspecified (principal); H40.9 Unspecified glaucoma; Z79.82 Long term (current) use of aspirin; Z79.899 Other long term (current) drug therapy